=== PATIENT | female | born 1985 | race Caucasian/White ===

== ENCOUNTER 2025-02-16 13:23 | Inpatient (IN) | payer OTHER ==
[2025-02-16 13:38] VITALS: BMI 31.0
[2025-02-16] MEDS ORDERED: BISMUTH SUBSALICYLATE 262 MG/15 ML BTL PO PRN (14:02)
[2025-02-16] MEDS ORDERED: NICOTINE POLACRILEX 2 MG LOZENGE BC PRN (14:02)
[2025-02-16] MEDS ORDERED: DICYCLOMINE HCL 10 MG CAPSULE PO PRN (14:02)
[2025-02-16] MEDS ORDERED: POLYETHYLENE GLYCOL (HEALTHYLAX) 3350 17 GM PACKET PO PRN (14:02)
[2025-02-16] MEDS ORDERED: NICOTINE POLACRILEX 2 MG GUM BUC PRN (14:02)
[2025-02-16] MEDS ORDERED: ACETAMINOPHEN 325 MG TABLET (FP) PO PRN (14:02)
[2025-02-16] MEDS ORDERED: LOPERAMIDE HCL 2 MG CAPSULE PO PRN (14:02)
[2025-02-16] MEDS ORDERED: IBUPROFEN 400 MG TABLET (FP) PO PRN (14:02)
[2025-02-16] MEDS ORDERED: BENZONATATE 200 MG CAPSULE PO PRN (14:02)
[2025-02-16] MEDS ORDERED: MAGNESIUM HYDROX 2400MG/30ML ORAL SUSPENSION 30 ML CUP PO PRN (14:02)
[2025-02-16] MEDS ORDERED: guaiFENesin 600 MG TABLET.ER (FP) PO PRN (14:02)
[2025-02-16] MEDS ORDERED: ONDANSETRON *ODT* 4 MG TABLET SL PRN (14:02)
[2025-02-16] MEDS ORDERED: P-EPHED 60MG/TRIPROLIDI 2.5MG TABLET PO PRN (14:02)
[2025-02-16] MEDS ORDERED: MAG HYDROX/AL HYDROX/SIMETH 30 ML UNIT-DOSE CUP PO PRN (14:02)
[2025-02-16] MEDS ORDERED: NALOXONE (NARCAN) HCL 4 MG/0.1 ML SPRAY NS PRN (14:02)
[2025-02-16] MEDS ORDERED: IBUPROFEN 600 MG TABLET (FP) PO PRN (14:02)
[2025-02-16] MEDS ORDERED: BENZOCAINE/MENTHOL (CHLORASEPTIC ) LOZENGE MM PRN (14:02)
[2025-02-16] MEDS ORDERED: cloNIDine HCL 0.1 MG TABLET PO PRN (14:05)
[2025-02-16] MEDS: hydrOXYzine PAMOATE 25 MG CAPSULE (FP) PO PRN (15:54)
[2025-02-16] MEDS: METHOCARBAMOL 500 MG TABLET PO PRN (15:54)
[2025-02-16] MEDS: methaDONE HCL 10 MG TABLET (FOR DETOX USE ONLY) PO ONE (20:06)
[2025-02-16] MEDS: THIAMINE 100 MG TABLET PO SCH (22:31)
[2025-02-16] MEDS: MELATONIN 5 MG TABLETS PO SCH (22:31)
[2025-02-17] MEDS: PRENATAL VITAMINS W/ FOLIC ACID TABLET (FP) PO SCH (09:45)
[2025-02-17 11:24] LABS: HEMATOCRIT 33.7 % (34.1-44.9); MCHC 32.6 g/dl (32.2-35.5); MEAN PLT VOLUME 9.7 fl (9.4-12.3); PLATELET COUNT 303 x10^3/uL (182-369); RDW 13.1 % (12.1-16.8)
[2025-02-17 11:30] LABS: POTASSIUM 3.9 mmol/L (3.5-5.1)
[2025-02-17 11:37] LABS: BLOOD UREA NITROGEN 9.3 mg/dL (7-18)
[2025-02-17 11:38] LABS: ALBUMIN 3.4 g/dl (3.4-5.0)
[2025-02-17 11:39] LABS: CALCIUM 9.4 mg/dL (8.5-10.1)
[2025-02-17 11:41] LABS: CREATININE 0.7 mg/dL (0.55-1.3)
[2025-02-17 11:42] LABS: BILIRUBIN,TOTAL 0.6 mg/dL (0.2-1)
[2025-02-17 11:43] LABS: TOT PROT 6.2 g/dl (6.4-8.2)
[2025-02-17] MEDS: SUVOREXANT 10 MG TABLET PO PRN (21:35)
[2025-02-18] MEDS: methaDONE HCL 10 MG TABLET (FOR DETOX USE ONLY) PO ONE (09:16)
[2025-02-18] MEDS ORDERED: DEXTROAMPHETAMINE PO SCH (10:00)
[2025-02-18] MEDS ORDERED: [UNRECOGNIZED DRUG - OTHER] PO SCH (10:00)
[2025-02-18] MEDS ORDERED: AMPHETAMINE PO SCH (10:00)
[2025-02-18 13:27] VITALS: PULSE 60; RESP 18
[2025-02-18 16:54] VITALS: BP 114/61; TEMP 97.1
[2025-02-20] MEDS ORDERED: methaDONE HCL 10 MG TABLET (FOR DETOX USE ONLY) PO ONE (10:00)
== END 2025-02-18 16:39 | disposition left against medical advice (07) | DRG 770 ==
LOC: YASAS 13:23 → Y3N 14:12
PROVIDERS: ADMIT Family Medicine; ATTEND Family Medicine
PROC: HZ2ZZZZ Detoxification Services for Substance Abuse Treatment (ICD-10-PCS; principal; 2025-02-16)
DX: F11.23 Opioid dependence with withdrawal (principal); F13.20 Sedative, hypnotic or anxiolytic dependence, uncomplicated; G40.909 Epilepsy, unspecified, not intractable, without status epilepticus; Z62.810 Personal history of physical and sexual abuse in childhood; Z91.410 Personal history of adult physical and sexual abuse; Z63.0 Problems in relationship with spouse or partner; Z63.8 Other specified problems related to primary support group; Z88.0 Allergy status to penicillin
CPT/HCPCS: 36415; 80053; 80305; 80307; 81025; 85027; 86780; 93005; 93010